=== PATIENT | female | born 1950 | race Caucasian/White ===

== ENCOUNTER → 2025-02-07 | Outpatient (REF) | payer MEDICARE ==
[2025-02-07 10:59] LABS: CREATININE, SERUM 4.76 mg/dL (0.57-1.11)
== END ==
LOC: CT 10:21
PROVIDERS: ATTEND Urology
DX: D41.02 Neoplasm of uncertain behavior of left kidney (principal)
CPT/HCPCS: 36415; 74176; 82565; 84520